=== PATIENT | female | born 1950 | race Caucasian/White ===

== ENCOUNTER → 2016-11-28 | Outpatient (CLI) | payer MEDICARE ==
--- NOTE | ~2016-11-28 | US78 ---
[facility] A Service [facility] RADIOLOGY TEXT RESULTS PATIENT: FEDERICO BERGERON LOCATION: [facility] : 46 UNIT #: [id number] AGE: [address]: Antoine Chan MD SEX: F ORDER DR: [id number] [facility] [address] [place], [place] [address] [id number] O MR#: [id number] Acc #: [id number] NAME: FEDERICO BERGERON : 1950 SEX: F STUDY DATE/TIME: 11/28/2016 8:33 UNIT: [facility] ROOM: STUDY DESCRIPTION: US Kidney Duplex Complete Attending Physician: Antoine Chan M.D. Referring Physician: Antoine Chan M.D. Ordering Physician: Antoine Chan M.D. Primary Care Physician: Primary Care Physician No MEDICAL IMAGING REPORT This report is preliminary unless electronic signature is present EXAM Renal duplex Doppler INDICATION Refractory hypertension. Observation for renal artery stenosis. PROCEDURE Johnson-scale, color Doppler and spectral imaging of both kidneys and renal arteries as well as the abdominal aorta. COMPARISON None. FINDINGS Right kidney measures 11.7 cm in length. The left measures 10.8 cm in length. Peak systolic velocity in the abdominal aorta measures 88 cm/sec. Velocity in the right renal artery measures 155, 112, and 100 cm/sec in the proximal, mid and distal segments. Segmental and arcuate arteries have peak systolic velocities of 114 and 62 cm/sec respectively. Peak systolic velocities in the left renal artery measure 148, 128, 142 cm/sec in the proximal and distal segments. Arcuate and segmental arteries have peak systolic velocities of 175 cm/sec respectively. Renal artery to aortic ratio is 1.8 on the right and 1.7 on the left. IMPRESSION No evidence for renal artery stenosis. Dictated by... Khadar Gonzalez M.D. THIS IS AN ELECTRONICALLY VERIFIED REPORT Khadar Gonzalez M.D. at 12/02/2016 2:11 PM [facility] A Service of [facility] RADIOLOGY TEXT RESULTS PATIENT: FEDERICO BERGERON LOCATION: [facility] #: [id number] : [birth year] UNIT #: [id number] AGE: [address]: Antoine Chan MD SEX: F ORDER DR: ETTA/ryan TD: 12/01/2016 13:32 JOB #: [id number] MEDICAL IMAGING REPORT COPY
== END | disposition home or self-care (01) ==
LOC: CGUS 08:09
DX: I10 Essential (primary) hypertension (principal); R60.0 Localized edema; R06.02 Shortness of breath; R51 Headache; M79.606 Pain in leg, unspecified
CPT/HCPCS: 93975